=== PATIENT | female | born 1945 | race Caucasian/White ===

== ENCOUNTER 2016-08-13 15:12 | Emergency (ER) | payer MEDICARE, OTHER ==
[2016-08-13] MEDS ORDERED: BUPIVACAINE 0.5%-EPI 1:200000 PF 30 ML VIAL ONE (16:09)
[2016-08-13] MEDS ORDERED: BUPIVACAINE 0.5% PF 30 ML VIAL SUBQ STA (16:14)
[2016-08-13] MEDS ORDERED: PENICILLIN VK 250 MG TABLET PO STA (16:14)
--- NOTE | 2016-08-13 16:18 | ED Physician Documentation ---
PD HPI HEENT - Stated complaint Stated Complaint: TOOTH PX - Chief complaint Chief Complaint: Heent - History obtained from History obtained from: Patient, Family - History of Present Illness Timing - onset: How many days ago (several) Timing - duration: Days Timing - details: Gradual onset Pain level max: 10 Pain level now: 10 Location: Tooth (lower left molar) Improves: Nothing Worsens: Swalllowing, Temperatures, Everything Associated symptoms: No: Fever, Congestion, Rhinorrhea, Trismus, Unable to swallow, Facial swelling Similar symptoms before: Diagnosis (dental abscess) - Additional information Additional information: Is a 70-year-old female who was seen by her dentist this week for her cracked tooth with dental abscess reportedly. They attempted to repair the tooth. Since that time she has had increasing pain in the left lower jaw. No swelling to the face. She had an old oxycodone left over and took that today without relief. No fevers. No vomiting. Review of Systems Constitutional: denies: Fever, Chills Ears: denies: Ear pain Nose: denies: Rhinorrhea / runny nose, Congestion Throat: denies: Sore throat Cardiac: denies: Chest pain / pressure Respiratory: denies: Cough GI: denies: Nausea, Vomiting, Diarrhea Skin: denies: Rash PD PAST MEDICAL HISTORY - Past Medical History Past Medical History: Yes Cardiovascular: Hypertension Respiratory: Asthma Neuro: None Endocrine/Autoimmune: None GI:  : Incontinence HEENT: None Psych: Depression Musculoskeletal: Osteoarthritis - Past Surgical History Past Surgical History: Yes General: Appendectomy, Gastric surgery 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 - Present Medications Home Medications: Ambulatory Orders Medication Instructions Recorded Confirmed Fexofenadine HCl [Marysol Allergy] 60 mg PO BID 07/05/13 07/05/13 Hydrochlorothiazide 12.5 mg PO DAILY PRN 07/05/13 07/05/13 Lisinopril [Prinivil] 20 mg PO DAILY 07/05/13 07/05/13 buPROPion [Wellbutrin Xl] 150 mg PO BID 07/05/13 07/05/13 Cholecalciferol [Vitamin D3] 1 DAILY 10/29/15 Cyanocobalamin (Vitamin B-12) 5,000 DAILY 10/29/15 [Vitamin B-12 (1000 mcg sublingual)] Oxybutynin [Ditropan] 15 mg PO DAILY 10/29/15 Oxycodone HCl/Acetaminophen 1 - 2 each PO Q6H PRN #14 tablet 08/13/16 [Percocet 5-325 mg Tablet] Penicillin V Potassium 500 mg PO Q6HR #40 tablet 08/13/16 - Allergies Allergies/Adverse Reactions: Allergies Allergy/AdvReac Type Severity Reaction Status Date / Time latex Allergy Rash Verified 10/29/15 06:55 sulfamethoxazole AdvReac Rash Verified 07/05/13 14:18 [From ] trimethoprim [From ] AdvReac Rash Verified 07/05/13 14:18 tape Allergy Rash Uncoded 10/28/15 13:07 - Social History Does the pt smoke?: No Smoking Status: Never smoker Does the pt drink ETOH?: No Does the pt have substance abuse?: No - Immunizations Immunizations are current?: Yes - POLST Patient has POLST: No PD ED PE NORMAL - Vitals Vital signs reviewed: Yes - General General: Alert and oriented X 3, No acute distress - HEENT HEENT: Moist mucous membranes - Neck Neck: Supple, no meningeal sign, No adenopathy, Other (No Skyler's angina) - Cardiac Cardiac: RRR - Derm Derm: Warm and dry - Neuro Neuro: Alert and oriented X 3 - Psych Psych: Normal mood, Normal affect PD ED PE EXPANDED - HEENT HEENT Visual: 1 - tenderness (No gingival swelling. No drainable abscess.) Results - Vitals Vitals: Vital Signs - 24 hr 08/13/16 08/13/16 15:15 16:38 Temperature 36.7 C 36.0 C L Heart Rate 78 65 Respiratory 18 20 Rate Blood Pressure 229/107 H 203/88 H O2 Saturation 96 99 Oxygen O2 Source Room air PD MEDICAL DECISION MAKING - ED course Complexity details: re-evaluated patient, considered differential, d/w patient, d/w family ED course: Patient is a 70-year-old female with left lower molar dental pain. No drainable abscess. A dental block was performed with 0.5% Marcaine with epinephrine with excellent relief of pain. Will prescribe a small amount of pain medication and antibiotics for home. We will have her call her dentist for close follow-up. She is afebrile. Tolerating p.o. without difficulty. Patient and family counseled regarding signs and symptoms for which I believe and urgent re-evaluation would be necessary. Patient with good understanding of and agreement to plan and is comfortable going home at this time This document was made in part using voice recognition software. While efforts are made to proofread this document, sound alike and grammatical errors may occur. Normal phonation. No trismus. No Ludwigs angina Departure - Departure Disposition: Home, Self Care Clinical Impression: Pain due to dental caries Condition: Good Instructions: ED Tooth Pain Follow-Up: Fredi Brizuela MD [Primary Care Provider] - your,dentist on Monday [Other] Prescriptions: Penicillin V Potassium 500 mg PO Q6HR #40 tablet Oxycodone HCl/Acetaminophen [Percocet 5-325 mg Tablet] 1 - 2 each PO Q6H PRN # 14 tablet PRN Reason: pain Comments: Return if you worsen. Make sure to take all the antibiotics at home. Do not drink alcohol or drive while on narcotic pain medicine. Note that many narcotic pain relievers also contain tylenol/acetaminophen. Please ensure that your total dose of acetaminophen from all sources does not exceed 3 grams (3000mg) per day. You may constipated on this medication, take a stool softener such as "Colace" twice a day while you are on it. Also recommend a fvcy-tla-bwvyrcl laxative such as senna or MiraLAX any day that you do not have a bowel movement. If you received narcotic pain medication in the emergency department, do not drive or operate machinery for the next 24 hours. Discharge Date/Time: 08/13/16 16:40
[2016-08-13] MEDS ORDERED: PENICILLIN VK 250 MG TABLET PO ONE (16:21)
[2016-08-13 16:40] VITALS: BP 203/88
== END 2016-08-13 16:40 | disposition home or self-care (01) ==
LOC: ED 15:12
DX: K02.9 Dental caries, unspecified (principal); I10 Essential (primary) hypertension
CPT/HCPCS: 64400; 99283; A9270

== ENCOUNTER 2016-12-05 08:00 | Outpatient (CLI) | payer MEDICARE, OTHER ==
[2016-12-05 13:54] LABS: BASOPHILS # (AUTO) 0.1 10^3/uL (0.0-0.1); BASOPHILS % (AUTO) 0.6 %; EOSINOPHILS # (AUTO) 0.2 10^3/uL (0.0-0.7); EOSINOPHILS % (AUTO) 2.4 %; HCT - HEMATOCRIT 40.6 % (37.0-47.0); HGB - HEMOGLOBIN 13.6 g/dL (12.0-16.0); LYMPHOCYTES # (AUTO) 2.2 10^3/uL (1.5-3.5); LYMPHOCYTES % (AUTO) 24.7 %; MEAN CORPUSCULAR HEMOGLOBIN 29.4 pg (27.0-31.0); MEAN CORPUSCULAR HGB CONC 33.5 g/dL (32.0-36.0); MEAN CORPUSCULAR VOLUME 87.6 fL (81.0-99.0); MEAN PLATELET VOLUME 9.9 fL (7.9-10.8); MONOCYTES # (AUTO) 0.7 10^3/uL (0.0-1.0); MONOCYTES % (AUTO) 8.2 %; NEUTROPHILS # (AUTO) 5.8 10^3/uL (1.5-6.6); NEUTROPHILS % (AUTO) 64.1 %; RED BLOOD COUNT 4.63 10^6/uL (4.20-5.40); RED CELL DISTRIBUTION WIDTH 12.9 % (12.0-15.0); UNCORRECTED WHITE BLOOD COUNT 9.1 x10^3/uL; WHITE BLOOD COUNT 9.1 x10^3/uL (4.8-10.8)
[2016-12-05 14:28] LABS: ALBUMIN/GLOBULIN RATIO 1.3 (1.0-2.2); BILIRUBIN,TOTAL 0.4 mg/dL (0.2-1.0); BUN - BLOOD UREA NITROGEN 17 mg/dL (6-20); CALCIUM 9.3 mg/dL (8.5-10.3); CARBON DIOXIDE - CO2 27 mmol/L (21-32); CHLORIDE 102 mmol/L (101-111); CHOL/HDL RATIO 2.7 (<4.4); CHOLESTEROL 192 mg/dL; CREATININE 0.9 mg/dL (0.4-1.0); GFR - MDRD 61 (>89); GLUCOSE 106 mg/dL (70-100); HDL CHOLESTEROL 71 mg/dL; LDL/HDL RATIO 1.3 (<4.4); POTASSIUM 3.8 mmol/L (3.5-5.0); SODIUM 137 mmol/L (135-145); TOTAL PROTEIN 7.3 g/dL (6.7-8.2); TRIGLYCERIDES 135 mg/dL; VLDL CHOLESTEROL 27 mg/dL
[2016-12-05 14:30] LABS: THYROID STIMULATING HORMONE 2.3 uIU/mL (0.34-5.60)
[2016-12-05 14:46] LABS: HEMOGLOBIN A1C 0.55 g/dL
== END 2016-12-05 08:01 | disposition home or self-care (01) ==
LOC: LAB.N 08:00
PROVIDERS: ATTEND Internal Medicine
DX: Z79.899 Other long term (current) drug therapy (principal); Z98.84 Bariatric surgery status; E11.9 Type 2 diabetes mellitus without complications; E66.9 Obesity, unspecified; F32.9 Major depressive disorder, single episode, unspecified; E78.2 Mixed hyperlipidemia; I10 Essential (primary) hypertension
CPT/HCPCS: 36415; 80053; 80061; 82306; 82607; 83036; 84443; 85025

== ENCOUNTER 2017-01-11 08:53 | Outpatient (CLI) | payer MEDICARE, OTHER | END 2017-01-11 08:54 | disposition home or self-care (01) | LOC: LAB.R 08:53 | PROVIDERS: ATTEND Physician Assistant Medical | DX: R31.9 Hematuria, unspecified (principal) | CPT/HCPCS: 87086 ==

== ENCOUNTER 2017-01-11 09:08 | Outpatient (CLI) | payer MEDICARE, OTHER ==
--- NOTE | 2017-01-11 13:13 | XRAY Report ---
RIGHT HIP AND PELVIS: 01/11/2017 CLINICAL INDICATION: Pain. FINDINGS: Frontal view of the hips and pelvis and frogleg lateral view of the right hip demonstrate mild right hip osteoarthritis. There is no evidence of acute fracture or dislocation. No foreign body is seen in the soft tissues. IMPRESSION: MILD RIGHT HIP OSTEOARTHRITIS. JOB #: [id number] EXT JOB #:[id number]
--- NOTE | 2017-01-11 13:16 | XRAY Report ---
TWO VIEW LEFT SHOULDER: 01/11/2017 CLINICAL INDICATION: Pain. FINDINGS: Frontal and scapular Y views of the left shoulder demonstrate severe glenohumeral osteoart hritis, with bulky osteophytes. There is no evidence of acute fracture or dislocation. No radiopaque foreign body is seen in the soft tissues. IMPRESSION: SEVERE GLENOHUMERAL OSTEOARTHRITIS. JOB #: [id number] EXT JOB #:[id number]
== END 2017-01-11 09:09 | disposition home or self-care (01) ==
LOC: DI 09:08
PROVIDERS: ATTEND Physician Assistant Medical
DX: M16.11 Unilateral primary osteoarthritis, right hip (principal); M19.012 Primary osteoarthritis, left shoulder; R31.9 Hematuria, unspecified
CPT/HCPCS: 87086

== ENCOUNTER 2017-01-20 07:30 | Outpatient (CLI) | payer MEDICARE, OTHER ==
--- NOTE | 2017-01-20 10:48 | Ultrasound Report ---
RIGHT UPPER QUADRANT ULTRASOUND: 01/20/2017 CLINICAL INDICATION: Abdominal pain. TECHNIQUE: Real-time scanning was performed with sales representative static images obtained. FINDINGS: The liver measures 15.4 cm. Hepatic echogenicity is normal. No intrahepatic biliary dilata tion or focal parenchymal lesion is present. The common bile duct measures 2 mm. The gallbladder is n ormal. The right kidney measures 9.5 cm, and demonstrates no hydronephrosis. No free fluid is present . IMPRESSION: NORMAL RIGHT UPPER QUADRANT ULTRASOUND. JOB #: [id number] EXT JOB #:[id number]
--- NOTE | 2017-01-20 16:59 | DEXA Report ---
DEXA SCAN: 01/20/2017 CLINICAL INDICATION: Postmenopausal. TECHNIQUE: Dual energy x-ray absorptiometry (DXA) was performed on a eToro system. Regions measured are the AP spine, femoral neck, and, if needed, forearm. COMPARISON: None. In accordance with the International Society for Clinical Densitometry (ISCD) guidelines, data from previous exams may be reanalyzed using current recommendations and techniques. This is done to allow a more accurate basis for comparison with the current study. FINDINGS LUMBAR SPINE DATA: REGION BMD (g/cm/cm) T-SCORE Z-SCORE L1 1.053 -0.6 0.4 L2 1.299 0.8 1.9 L3 1.513 2.6 3.7 L4 1.485 2.4 3.4 TOTAL 1.343 1.4 2.4 NOTE: All evaluable vertebrae are used for classification. HIP DATA: REGION BMD (g/cm/cm) T-SCORE Z-SCORE Neck 0.701 -2.4 -1.0 TOTAL 0.746 -2.1 -0.9 NOTE: The femoral neck or total proximal femur, whichever is lowest, is used for classification. IMPRESSION THE WHO CLASSIFICATION BASED ON THE INTERNATIONAL REFERENCE STANDARD: OSTEOPENIA. FRACTURE RISK: INCREASED. RECOMMENDATION: Patients with diagnosis of osteoporosis or osteopenia should have regular bone mineral density assessment. For those eligible for Medicare, routine testing is allowed once every 2 years. Testing frequency can be increased for patients who have rapidly progressing disease or for those who are receiving medical therapy to restore bone mass. COMMENT: World Health Organization (WHO) definitions for osteoporosis and osteopenia: NORMAL BMD: T-score at -1.0 or higher, fracture risk is low. OSTEOPENIA BMD: T-score between -1.0 and -2.5, fracture risk is increased. OSTEOPOROSIS BMD: T-score at -2.5 or lower, fracture risk high. National Osteoporosis Foundation recommends: 1. Obtain adequate dietary calcium (at least 1200 mg per day) and vitamin D (400 -800 international units per day). 2. Participate, as appropriate, in regular weightbearing and muscle- strengthening exercise. 3. Avoid tobacco use and reduce alcohol and caffeine intake. 4. For more detailed information see the website at www.NOF.org. MTDD
== END 2017-01-20 07:31 | disposition home or self-care (01) ==
LOC: DI 07:30
PROVIDERS: ATTEND Physician Assistant Medical
DX: M85.88 Other specified disorders of bone density and structure, other site (principal); R10.11 Right upper quadrant pain
CPT/HCPCS: 76705; 77080

== ENCOUNTER 2017-01-26 09:06 | Outpatient (CLI) | payer MEDICARE, OTHER ==
--- NOTE | 2017-01-31 16:39 | Mammography Report ---
DIGITAL BILATERAL SCREENING MAMMOGRAM: 01/26/2017 COMPARISON EXAM: Mammogram 09/09/2014. TECHNIQUE: Routine CC and MLO projections were obtained of the breasts. BREAST DENSITY: There are scattered fibroglandular densities. FINDINGS: No dominant mass, architectural distortion, or concerning cluster of microcalcifications is seen. IMPRESSION: NEGATIVE BIRADS CATEGORY: 1, NEGATIVE. RECOMMENDATION: ANNUAL SCREENING MAMMOGRAM STANDARD QUALIFYING STATEMENTS 1. This examination was reviewed with the aid of Computed-Aided Detection (CAD). 2. A negative or benign imaging report should not delay biopsy if clinically suspicious findings are present. Consider surgical consultation if warranted. More than 5% of cancers are not identified by imaging. 3. Dense breasts may obscure an underlying neoplasm. MTDD
== END 2017-01-26 09:07 | disposition home or self-care (01) ==
LOC: DI.N 09:06
PROVIDERS: ATTEND Physician Assistant Medical
DX: Z12.31 Encounter for screening mammogram for malignant neoplasm of breast (principal)
CPT/HCPCS: 77067

== ENCOUNTER 2017-07-11 08:00 | Outpatient (CLI) | payer MEDICARE, OTHER ==
[2017-07-11 15:20] LABS: BILIRUBIN,URINE NEGATIVE (NEGATIVE); GLUCOSE, URINE (UA) NEGATIVE (NEGATIVE); KETONES,URINE (UA) NEGATIVE (NEGATIVE); LEUKOCYTE ESTERASE, URINE NEGATIVE (NEGATIVE); NITRITE,URINE NEGATIVE (NEGATIVE); OCCULT BLOOD,URINE NEGATIVE (NEGATIVE); PH,URINE 6.5 PH (5.0-7.5); PROTEIN,URINE NEGATIVE (NEGATIVE); UROBILINOGEN,URINE 0.2 (NORMAL) E.U./dL (NORMAL)
[2017-07-11 15:20] LABS: BASOPHILS # (AUTO) 0.1 10^3/uL (0.0-0.1); BASOPHILS % (AUTO) 0.8 %; EOSINOPHILS # (AUTO) 0.1 10^3/uL (0.0-0.7); EOSINOPHILS % (AUTO) 1.6 %; HGB - HEMOGLOBIN 13.6 g/dL (12.0-16.0); LYMPHOCYTES # (AUTO) 2.5 10^3/uL (1.5-3.5); LYMPHOCYTES % (AUTO) 34.5 %; MEAN CORPUSCULAR HEMOGLOBIN 28.5 pg (27.0-31.0); MEAN CORPUSCULAR VOLUME 86.5 fL (81.0-99.0); MONOCYTES # (AUTO) 0.6 10^3/uL (0.0-1.0); MONOCYTES % (AUTO) 7.5 %; NEUTROPHILS # (AUTO) 4.1 10^3/uL (1.5-6.6); NEUTROPHILS % (AUTO) 55.6 %; PLT - PLATELET COUNT 242 10^3/uL (130-450); RED BLOOD COUNT 4.77 10^6/uL (4.20-5.40); RED CELL DISTRIBUTION WIDTH 12.9 % (12.0-15.0); WHITE BLOOD COUNT 7.3 x10^3/uL (4.8-10.8)
[2017-07-11 15:21] LABS: CLARITY,URINE CLEAR (CLEAR)
[2017-07-11 15:45] LABS: ALBUMIN 3.8 g/dL (3.2-5.5); ALBUMIN/GLOBULIN RATIO 1.1 (1.0-2.2); ALKALINE PHOSPHATASE 150 IU/L (42-121); ALT ALANINE AMINOTRANSFERASE 56 IU/L (10-60); AST ASPARTATE AMINOTRANSFERASE 33 IU/L (10-42); BILIRUBIN,TOTAL 0.4 mg/dL (0.2-1.0); BUN - BLOOD UREA NITROGEN 17 mg/dL (6-20); CALCIUM 9.5 mg/dL (8.5-10.3); CARBON DIOXIDE - CO2 28 mmol/L (21-32); CHLORIDE 102 mmol/L (101-111); CREATININE 0.7 mg/dL (0.4-1.0); GFR - MDRD 82 (>89); GLUCOSE 84 mg/dL (70-100); SODIUM 137 mmol/L (135-145); TOTAL PROTEIN 7.4 g/dL (6.7-8.2)
[2017-07-11 16:15] LABS: CRP - C-REACTIVE PROTEIN < 1.0 mg/dL (0-1.0)
== END 2017-07-11 08:01 | disposition home or self-care (01) ==
LOC: LAB.R 08:00
PROVIDERS: ATTEND Physician Assistant Medical
DX: R31.9 Hematuria, unspecified (principal); R53.83 Other fatigue; R10.11 Right upper quadrant pain; Z79.899 Other long term (current) drug therapy; R74.8 Abnormal levels of other serum enzymes
CPT/HCPCS: 80053; 81001; 81003; 82977; 84443; 85025; 85651; 86140; 87086

== ENCOUNTER 2017-08-30 16:59 | Outpatient (CLI) | payer MEDICARE, OTHER ==
--- NOTE | 2017-08-31 09:50 | Ultrasound Report ---
Procedure Date: 08/30/2017 Accession Number: [id number] / [id number] Procedure: US - Carotid Doppler Complete CPT Code: FULL RESULT: EXAM: BILATERAL CAROTID AND VERTEBRAL ARTERY DUPLEX DOPPLER ULTRASOUND: EXAM DATE: 08/30/2017 05:40 PM CLINICAL HISTORY: Dizziness. COMPARISON: None. TECHNIQUE: Grayscale imaging, color Doppler, and duplex spectral Doppler were used to evaluate the carotid and vertebral arteries bilaterally. Static images were obtained. FINDINGS: The right CCA has intimal hyperplasia. There is noncalcified plaque distally. There is calcified plaque at the bulb. There is calcified plaque in the proximal right ICA. ICA is very ectatic. Left common carotid artery has intimal hyperplasia with calcified and noncalcified plaque mid to distal. Calcified plaque at the bulb extending into the left ICA. ICA is ectatic. Normal antegrade flow is present in bilateral vertebral arteries. VELOCITIES (cm/sec): RIGHT: RCCA Prox: PSV 35.2 cm/sec. RCCA Dist: PSV 46.7 cm/sec, EDV 9.9 cm/sec. RECA: PSV 48.5 cm/sec. R Bulb: PSV 39.9 cm/sec, EDV 5.7 cm/sec, ICA/CCA ratio 0.9. NATALY Prox: PSV 43 cm/sec, EDV 11.7 cm/sec, ICA/CCA ratio 0.9. NATALY Mid: PSV 45.7 cm/sec, EDV 10.5 cm/sec, ICA/CCA ratio 1.0. NATALY Dist: PSV 39.6 cm/sec, EDV 9.3 cm/sec, ICA/CCA ratio 0.8. RVA: PSV 49.6 cm/sec. RVA flow direction: Antegrade. LEFT: LCCA Prox: PSV 51.4 cm/sec. LCCA Dist: PSV 52.1 cm/sec, EDV 13.5 cm/sec. LECA: PSV 41.7 cm/sec. L Bulb: PSV 46.4 cm/sec, EDV 8.5 cm/sec, ICA/CCA ratio 0.9. LICA Prox: PSV 52.1 cm/sec, EDV 12.9 cm/sec, ICA/CCA ratio 1.0. LICA Mid: PSV 72.3 cm/sec, EDV 19.6 cm/sec, ICA/CCA ratio 1.4. LICA Dist: PSV 66.5 cm/sec, EDV 16.1 cm/sec, ICA/CCA ratio 1.3. LVA: PSV 67.3 cm/sec. LVA flow direction: Antegrade. ICA diameter stenosis: Right: <50% by velocity and <70% by NASCET criteria. Left: <50% by velocity and <70% by NASCET criteria. IMPRESSION: 1. Bilateral carotid artery plaquing without significant stenosis. 2. In the right carotid artery there are no elevated carotid artery velocities to suggest hemodynamically significant stenosis. 3. In the left carotid artery there are no elevated carotid artery velocities to suggest hemodynamically significant stenosis. 4. Normal antegrade flow is present in bilateral vertebral arteries. General Recommendations: Stenosis =50% ICA - Follow-up ultrasound 6-12 months Stenosis <50% ICA - High Risk Patient with plaque - Follow-up ultrasound 1-2 years Normal Study but High Risk Patient - Follow-up ultrasound 3-5 years Management recommendations and diagnostic criteria are based on current IAC endorsed standards in Carotid Artery Stenosis: Grayscale and Doppler Ultrasound Diagnosis. Validated velocity measurements with angiographic measurements and velocity criteria are extrapolated from diameter data as defined by the Society of Radiologists in Ultrasound Consensus Conference Radiology 2003; 229;340-346. RADIA
== END 2017-08-30 17:00 | disposition home or self-care (01) ==
LOC: DI 16:59
PROVIDERS: ATTEND Physician Assistant Medical
DX: R42 Dizziness and giddiness (principal)
CPT/HCPCS: 93880

== ENCOUNTER 2017-11-14 16:28 | Outpatient (CLI) | payer MEDICARE, OTHER ==
[2017-11-14 16:56] LABS: BASOPHILS % (AUTO) 0.8 %; EOSINOPHILS % (AUTO) 1.8 %; HGB - HEMOGLOBIN 13.8 g/dL (12.0-16.0); LYMPHOCYTES % (AUTO) 31.6 %; MEAN CORPUSCULAR HEMOGLOBIN 29.9 pg (27.0-31.0); MEAN CORPUSCULAR VOLUME 85.5 fL (81.0-99.0); MEAN PLATELET VOLUME 7.8 fL (7.9-10.8); NEUTROPHILS % (AUTO) 58.8 %; PLT - PLATELET COUNT 427 10^3/uL (130-450); RED BLOOD COUNT 4.61 10^6/uL (4.20-5.40); RED CELL DISTRIBUTION WIDTH 13.6 % (12.0-15.0); WHITE BLOOD COUNT 10.2 x10^3/uL (4.8-10.8)
[2017-11-14 17:04] LABS: ABNORMAL LYMPHS % (MANUAL) 0 %; BAND NEUTROPHILS % (MANUAL) 0 %
[2017-11-14 17:07] LABS: ALBUMIN 3.8 g/dL (3.2-5.5); ALBUMIN/GLOBULIN RATIO 0.9 (1.0-2.2); BILIRUBIN,TOTAL 0.2 mg/dL (0.2-1.0); CALCIUM 9.4 mg/dL (8.5-10.3); CREATININE 0.8 mg/dL (0.4-1.0)
[2017-11-14 17:08] LABS: BILIRUBIN,URINE NEGATIVE (NEGATIVE); GLUCOSE, URINE (UA) NEGATIVE (NEGATIVE); KETONES,URINE (UA) NEGATIVE (NEGATIVE); LEUKOCYTE ESTERASE, URINE NEGATIVE (NEGATIVE); NITRITE,URINE NEGATIVE (NEGATIVE); OCCULT BLOOD,URINE NEGATIVE (NEGATIVE); PH,URINE 7.5 PH (5.0-7.5); PROTEIN,URINE NEGATIVE (NEGATIVE); UROBILINOGEN,URINE 0.2 (NORMAL) E.U./dL (NORMAL)
[2017-11-14 17:11] LABS: CLARITY,URINE CLEAR (CLEAR)
[2017-11-14 17:22] LABS: BASOPHILS # (MANUAL) 0.2 10^3/uL (0-0.1); BASOPHILS % (MANUAL) 2 %; EOSINOPHILS # (MANUAL) 0.2 10^3/uL (0-0.7); LYMPHOCYTES # (MANUAL) 4.8 10^3/uL (1.5-3.5); LYMPHOCYTES % (MANUAL) 38 %; METAMYELOCYTES % (MANUAL) 2 %; MONOCYTES # (MANUAL) 0.4 10^3/uL (0.0-1.0); NEUTROPHILS # (MANUAL) 4.4 10^3/uL (1.5-6.6); NEUTROPHILS % (MANUAL) 43 %; PLATELET MORPHOLOGY NORMAL APPEARANCE (NORMAL); RBC MORPHOLOGY (MULTIPLE) NORMAL APPEARANCE (NORMAL)
[2017-11-14 17:23] LABS: DIFFERENTIAL COMMENT MANUAL DIFFERENTIAL; PLATELET ESTIMATE, MANUAL NORMAL (130-450,000) (NORMAL)
== END 2017-11-14 16:29 | disposition home or self-care (01) ==
LOC: LAB 16:28
PROVIDERS: ATTEND Internal Medicine
DX: N12 Tubulo-interstitial nephritis, not specified as acute or chronic (principal)
CPT/HCPCS: 36415; 80053; 81001; 81003; 85025; 87086

== ENCOUNTER 2017-11-20 08:00 | Outpatient (CLI) | payer MEDICARE, OTHER ==
[2017-11-20 19:21] LABS: ALBUMIN 3.9 g/dL (3.2-5.5); BILIRUBIN,TOTAL 0.6 mg/dL (0.2-1.0); CALCIUM 9.6 mg/dL (8.5-10.3); CREATININE 0.8 mg/dL (0.4-1.0); TOTAL PROTEIN 7.7 g/dL (6.7-8.2)
[2017-11-21 13:27] LABS: HEPATITIS A IGM NON-REACTIVE (NON-REACTIVE); HEPATITIS B CORE ANTIBODY IGM NON-REACTIVE (NON-REACTIVE); HEPATITIS B SURFACE ANTIGEN NON-REACTIVE (NON-REACTIVE); HEPATITIS C ANTIBODY NON-REACTIVE (NON-REACTIVE)
== END 2017-11-20 08:01 | disposition home or self-care (01) ==
LOC: LAB.N 08:00
PROVIDERS: ATTEND Internal Medicine
DX: R94.5 Abnormal results of liver function studies (principal); R30.0 Dysuria
CPT/HCPCS: 36415; 80053; 80074; 87086

== ENCOUNTER 2017-11-30 11:32 | Outpatient (CLI) | payer MEDICARE, OTHER ==
[2017-11-30 15:27] LABS: BASOPHILS % (AUTO) 0.5 %; EOSINOPHILS # (AUTO) 0.1 10^3/uL (0.0-0.7); EOSINOPHILS % (AUTO) 1.9 %; HGB - HEMOGLOBIN 13.4 g/dL (12.0-16.0); LYMPHOCYTES # (AUTO) 2.3 10^3/uL (1.5-3.5); LYMPHOCYTES % (AUTO) 34.9 %; MEAN CORPUSCULAR HEMOGLOBIN 29.4 pg (27.0-31.0); MEAN CORPUSCULAR HGB CONC 34.1 g/dL (32.0-36.0); MEAN CORPUSCULAR VOLUME 86.2 fL (81.0-99.0); MEAN PLATELET VOLUME 10.2 fL (7.9-10.8); MONOCYTES # (AUTO) 0.5 10^3/uL (0.0-1.0); MONOCYTES % (AUTO) 7.7 %; NEUTROPHILS # (AUTO) 3.6 10^3/uL (1.5-6.6); PLT - PLATELET COUNT 243 10^3/uL (130-450); RED BLOOD COUNT 4.58 10^6/uL (4.20-5.40); RED CELL DISTRIBUTION WIDTH 13.8 % (12.0-15.0); WHITE BLOOD COUNT 6.6 x10^3/uL (4.8-10.8)
[2017-11-30 15:42] LABS: CHOL/HDL RATIO 2.9 (<4.4); CHOLESTEROL 220 mg/dL; HDL CHOLESTEROL 76 mg/dL; LDL CHOLESTEROL,CALCULATED 113 mg/dL; LDL/HDL RATIO 1.5 (<4.4); VLDL CHOLESTEROL 31 mg/dL
[2017-11-30 16:11] LABS: HB2 TOTAL 14.2 g/dL; HEMOGLOBIN A1C 0.63 g/dL; HEMOGLOBIN A1C % 6.2 % (4.6-6.2)
== END 2017-11-30 11:33 | disposition home or self-care (01) ==
LOC: LAB.R 11:32
PROVIDERS: ATTEND Physician Assistant Medical
DX: Z79.899 Other long term (current) drug therapy (principal); F32.9 Major depressive disorder, single episode, unspecified; E78.2 Mixed hyperlipidemia; E11.9 Type 2 diabetes mellitus without complications
CPT/HCPCS: 80061; 83036; 83721; 84443; 85025

== ENCOUNTER 2018-08-02 15:08 | Outpatient (CLI) | payer MEDICARE, OTHER | END 2018-08-02 15:09 | disposition home or self-care (01) | LOC: LAB 15:08 | PROVIDERS: ATTEND Internal Medicine Cardiovascular Disease | DX: I25.10 Atherosclerotic heart disease of native coronary artery without angina pectoris (principal) ==

== ENCOUNTER 2021-08-09 08:38 | Outpatient (CLI) | payer MEDICARE, OTHER ==
--- NOTE | 2021-08-09 15:21 | Ultrasound Report ---
PROCEDURE: Abdomen Limited INDICATIONS: RUQ PAIN S/P CHOLECYSTECTOMY TECHNIQUE: Real-time focused scanning was performed of the abdomen, with image documentation. COMPARISON: Abdominal ultrasound 02/05/2017 FINDINGS: Cholecystectomy. No intrahepatic or extra hepatic biliary ductal dilatation. Diffusely inc reased hepatic parenchymal echogenicity indicative of mild hepatic steatosis. Otherwise normal liver without evidence of mass. Visualized portions of the pancreas are normal. Right kidney unremarkable. IMPRESSION: Cholecystectomy. Mild hepatic steatosis. Reviewed by: Philipp Bellamy MD on 08/09/2021 3:20 PM PDT Approved by: Philipp Bellamy MD on 08/09/2021 3:20 PM PDT Station ID: [id number]
== END 2021-08-09 08:39 | disposition home or self-care (01) ==
LOC: DI 08:38
PROVIDERS: ATTEND Student in an Organized Health Care Education/Training Program
DX: R10.11 Right upper quadrant pain (principal); Z90.49 Acquired absence of other specified parts of digestive tract; K76.0 Fatty (change of) liver, not elsewhere classified

== ENCOUNTER 2022-02-18 13:10 | Outpatient (CLI) | payer MEDICARE, OTHER ==
--- NOTE | 2022-02-18 16:29 | XRAY Report ---
PROCEDURE: Chest 2 View X-Ray INDICATIONS: COUGH,POSS PNA TECHNIQUE: 2 views of the chest were acquired. COMPARISON: None. FINDINGS: Surgical changes and devices: A right shoulder arthroplasty is present.. Lungs and pleura: No pleural effusions or pneumothorax. Mild patchy opacities in the left upper lung zone are suspicious for pneumonia. Mediastinum: Mediastinal contours are normal. Heart size is normal. Bones and chest wall: No suspicious bony abnormalities. Soft tissues appear unremarkable. IMPRESSION: Mild patchy opacities in the left upper lung zone are suspicious for pneumonia. Reviewed by: Abran Ladd MD on 02/18/2022 4:28 PM PST Approved by: Abran Ladd MD on 02/18/2022 4:28 PM PST Station ID: [id number]
== END 2022-02-18 13:11 | disposition home or self-care (01) ==
LOC: DI 13:10
PROVIDERS: ATTEND Student in an Organized Health Care Education/Training Program
DX: R91.8 Other nonspecific abnormal finding of lung field (principal)

== ENCOUNTER 2022-10-28 12:43 | Outpatient (CLI) | payer MEDICARE, OTHER ==
--- NOTE | 2022-10-28 19:31 | Ultrasound Report ---
PROCEDURE: Carotid Doppler Complete INDICATIONS: ISCHEMIC STROKE TECHNIQUE: Duplex carotid ultrasound was obtained and sales representative aircraft images were recorded with veloc ity measurements. Any estimate of stenosis was obtained with reference to standards endorsed by the Intersocietal Accreditation Commission COMPARISON: None. FINDINGS: Right side: Brachial blood pressure: 151/59 mm Hg. Common carotid artery peak systolic velocity: 65 cm/sec. Internal carotid artery peak systolic velocity: 72 cm/sec. Internal carotid artery end diastolic velocity: 19 cm/sec. External carotid artery peak systolic velocity: 61 cm/sec. ICA/CCA peak systolic ratio: 1.1 . Rivera scale imaging description: Moderate atherosclerotic plaque. Percent internal carotid artery stenosis: Less than 50. Vertebral artery: Flow direction is antegrade. Left side: Brachial blood pressure: 153/55 mm Hg. Common carotid artery peak systolic velocity: 60 cm/sec. Internal carotid artery peak systolic velocity: 82 cm/sec. Internal carotid artery end diastolic velocity: 21 cm/sec. External carotid artery peak systolic velocity: 93 cm/sec. ICA/CCA peak systolic ratio: 1.3 . Rivera scale imaging description: Atherosclerotic plaque Percent internal carotid artery stenosis: Less than 50. Vertebral artery: Flow direction is antegrade. IMPRESSION: 1. Less than 50% stenosis, bilateral proximal ICA Reviewed by: Harshal Salinas MD on 10/28/2022 6:30 PM AKDT Approved by: Harshal Salinas MD on 10/28/2022 6:30 PM AKDT Station ID: [id number]
== END 2022-10-28 12:44 | disposition home or self-care (01) ==
LOC: DI 12:43
PROVIDERS: ATTEND Psychiatry & Neurology Neurology
DX: I63.9 Cerebral infarction, unspecified (principal); I65.23 Occlusion and stenosis of bilateral carotid arteries
CPT/HCPCS: 93880

== ENCOUNTER 2023-01-03 12:47 | Outpatient (CLI) | payer MEDICARE, OTHER | END 2023-01-03 12:48 | disposition home or self-care (01) | LOC: DI 12:47 | PROVIDERS: ATTEND Psychiatry & Neurology Neurology | DX: I63.9 Cerebral infarction, unspecified (principal); R00.1 Bradycardia, unspecified; I51.7 Cardiomegaly | CPT/HCPCS: 93306 ==

== ENCOUNTER 2023-02-17 11:14 | Emergency (ER) | payer MEDICARE, OTHER ==
[2023-02-17 11:52] LABS: BASOPHILS % (AUTO) 0.4 %; EOSINOPHILS # (AUTO) 0.2 10^3/uL (0.0-0.7); EOSINOPHILS % (AUTO) 2.3 %; HCT - HEMATOCRIT 37.8 % (37.0-47.0); HGB - HEMOGLOBIN 12.2 g/dL (12.0-16.0); LYMPHOCYTES # (AUTO) 1.5 10^3/uL (1.5-3.5); MEAN CORPUSCULAR HEMOGLOBIN 26.6 pg (27.0-31.0); MEAN CORPUSCULAR HGB CONC 32.3 g/dL (32.0-36.0); MEAN CORPUSCULAR VOLUME 82.4 fL (81.0-99.0); MEAN PLATELET VOLUME 11.1 fL (7.9-10.8); MONOCYTES % (AUTO) 12.1 %; NEUTROPHILS # (AUTO) 5.2 10^3/uL (1.5-6.6); NEUTROPHILS % (AUTO) 65.8 %; PLT - PLATELET COUNT 222 10^3/uL (130-450); RED BLOOD COUNT 4.59 10^6/uL (4.20-5.40); RED CELL DISTRIBUTION WIDTH 13.5 % (12.0-15.0); WHITE BLOOD COUNT 7.9 x10^3/uL (4.8-10.8)
[2023-02-17 12:01] LABS: ACETAMINOPHEN 0.7 ug/mL; ALBUMIN 4.1 g/dL (3.2-5.5); ALBUMIN/GLOBULIN RATIO 1.4 (1.0-2.2); ALKALINE PHOSPHATASE 114 IU/L (42-121); ALT ALANINE AMINOTRANSFERASE 35 IU/L (10-60); AST ASPARTATE AMINOTRANSFERASE 29 IU/L (10-42); BILIRUBIN,TOTAL 0.4 mg/dL (0.2-1.0); BUN - BLOOD UREA NITROGEN 11 mg/dL (6-20); CALCIUM 9.6 mg/dL (8.5-10.3); CARBON DIOXIDE - CO2 26 mmol/L (21-32); CHLORIDE 96 mmol/L (101-111); CREATININE 0.8 mg/dL (0.6-1.3); ETOH - ETHANOL < 10.0 mg/dL; GFR - MDRD 69 (>89); GLUCOSE 162 mg/dL (74-104); LIPASE 29 U/L (11-82); POTASSIUM 3.6 mmol/L (3.5-4.5); SALICYLATE < 1.5 mg/dL; SODIUM 129 mmol/L (135-145); TOTAL PROTEIN 7.1 g/dL (6.4-8.9)
[2023-02-17 12:17] LABS: THYROID STIMULATING HORMONE 1.76 uIU/mL (0.34-5.60)
[2023-02-17] MEDS ORDERED: LACTATED RINGERS 1,000 ML IV STA (12:36)
--- NOTE | 2023-02-17 14:56 | ED Physician Documentation ---
PD HPI MHE - Stated complaint Stated Complaint: SORE THROAT - Chief complaint Chief Complaint: MHE - History obtained from History obtained from: Patient, Family () - Additional information Additional information: She's along history of psychiatric illness with tardive dyskinesia. Also chronic shoulder pain. Recently because of these issues, she has developed suicidal ideation with thoughts of overdosing on Ambien. She was on ingrezza for her TD. That was stopped as it was not helpful, now on Amantadine. 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 - Present Medications Home Medications: Ambulatory Orders Medication Instructions Recorded Confirmed ARIPiprazole [Abilify] 5 mg PO DAILY 08/31/20 08/31/20 Atorvastatin Calcium 40 mg PO DAILY 08/31/20 08/31/20 Cholecalciferol (Vitamin D3) 5,000 unit PO DAILY 08/31/20 08/31/20 [Vitamin D3] Clopidogrel [Plavix] 75 mg PO DAILY 08/31/20 08/31/20 Coffee/Theanine/Superoxide Dis 1 cap PO DAILY 08/31/20 08/31/20 [Neuriva De-Stress Capsule] DULoxetine [Cymbalta] 30 mg PO DAILY 08/31/20 08/31/20 Floradix 1 each PO DAILY 08/31/20 Linaclotide [Linzess] 230 mcg PO DAILYWM 08/31/20 08/31/20 Mecobalamin [B-12] 5,000 mcg PO DAILY 08/31/20 08/31/20 Mirabegron [Myrbetriq] 50 mg PO DAILY 08/31/20 08/31/20 Multivit-Min/Iron/Folic/Lutein 1 tab PO DAILY 08/31/20 08/31/20 [Multivitamin Women 50 Plus Tab] Pantoprazole [Protonix] 40 mg PO DAILY 08/31/20 08/31/20 amLODIPine [Norvasc] 5 mg PO DAILY 08/31/20 08/31/20 hydroCHLOROthiazide [Hydrodiuril] 25 mg PO DAILY 08/31/20 08/31/20 - Allergies Allergies/Adverse Reactions: Allergies Allergy/AdvReac Type Severity Reaction Status Date / Time latex Allergy Rash Verified 02/17/23 11:26 sulfamethoxazole AdvReac Rash Verified 02/17/23 11:26 [From ] trimethoprim [From ] AdvReac Rash Verified 02/17/23 11:26 tape Allergy Rash Uncoded 02/17/23 11:26 - Social History Does the pt smoke?: No Smoking Status: Never smoker Does the pt drink ETOH?: No Does the pt have substance abuse?: No - Immunizations Immunizations are current?: Yes - POLST Patient has POLST: No PD ED PE NORMAL - Vitals Vital signs reviewed: Yes - General General: Alert and oriented X 3, No acute distress - HEENT HEENT: PERRL, EOMI - Respiratory Respiratory: No respiratory distress - Abdomen Abdomen: Non tender - Neuro Neuro: Alert and oriented X 3, Normal speech - Psych Psych: Other (tearful, cooperative, well kempt, good eye contact) Results - Vitals Vitals: Vital Signs - 24 hr 02/17/23 02/17/23 11:19 15:57 Temperature 36.8 C Heart Rate 64 75 Respiratory 16 13 Rate Blood Pressure 133/53 H 160/77 H O2 Saturation 97 97 Oxygen O2 Source Room air - Labs Labs: Laboratory Tests 02/17/23 02/17/23 02/17/23 11:44 11:44 11:44 WBC 7.9 RBC 4.59 Hgb 12.2 Hct 37.8 MCV 82.4 MCH 26.6 L MCHC 32.3 RDW 13.5 Plt Count 222 MPV 11.1 H Neut # (Auto) 5.2 Lymph # (Auto) 1.5 [place] # (Auto) 1.0 Eos # (Auto) 0.2 Baso # (Auto) 0.0 Absolute Nucleated RBC 0.00 Nucleated RBC % 0.0 Sodium 129 L Potassium 3.6 Chloride 96 L Carbon Dioxide 26 Anion Gap 7.0 BUN 11 Creatinine 0.8 Estimated GFR (MDRD) 69 L Glucose 162 H Calcium 9.6 Magnesium 1.7 Total Bilirubin 0.4 AST 29 ALT 35 Alkaline Phosphatase 114 Total Protein 7.1 Albumin 4.1 Globulin 3.0 Albumin/Globulin Ratio 1.4 Lipase 29 Vitamin B12 TSH 1.76 Urine Color Urine Clarity Urine pH Ur Specific [place] Urine Protein Urine Glucose (UA) Urine Ketones Urine Occult Blood Urine Nitrite Urine Bilirubin Urine Urobilinogen Ur Leukocyte Esterase Ur Microscopic Review Urine Culture Comments Nasal Adenovirus (PCR) Nasal B. parapertussis DNA (PCR) Nasal Coronavir 229E PCR Nasal Coronavir HKU1 PCR Nasal Coronavir NL63 PCR Nasal Coronavir OC43 PCR Nasal Enterovir/Rhinovir PCR Nasal Influenza B PCR Nasal Influenza A PCR Nasal Parainfluen 1 PCR Nasal Parainfluen 2 PCR Nasal Parainfluen 3 PCR Nasal Parainfluen 4 PCR Nasal RSV (PCR) Nasal B.pertussis DNA PCR Nasal C.pneumoniae (PCR) Heath Human Metapneumo PCR Nasal M.pneumoniae (PCR) Nasal SARS-CoV-2 (PCR) Salicylates < 1.5 Urine Opiates Screen Ur Buprenorphine Scrn Ur Oxycodone Screen Urine Methadone Screen Acetaminophen 0.7 Ur Barbiturates Screen Ur Tricyclics Screen Ur Phencyclidine Scrn Ur Amphetamine Screen U Methamphetamines Scrn U Benzodiazepines Scrn Urine Cocaine Screen U Cannabinoids Screen Ur Drug Screen Comment Ethyl Alcohol < 10.0 02/17/23 02/17/23 02/17/23 11:44 14:58 16:39 WBC RBC Hgb Hct MCV MCH MCHC RDW Plt Count MPV Neut # (Auto) Lymph # (Auto) [place] # (Auto) Eos # (Auto) Baso # (Auto) Absolute Nucleated RBC Nucleated RBC % Sodium Potassium Chloride Carbon Dioxide Anion Gap BUN Creatinine Estimated GFR (MDRD) Glucose Calcium Magnesium Total Bilirubin AST ALT Alkaline Phosphatase Total Protein Albumin Globulin Albumin/Globulin Ratio Lipase Vitamin B12 1497 H TSH Urine Color YELLOW Urine Clarity CLEAR Urine pH 6.5 Ur Specific [place] 1.010 Urine Protein NEGATIVE Urine Glucose (UA) NEGATIVE Urine Ketones NEGATIVE Urine Occult Blood NEGATIVE Urine Nitrite NEGATIVE Urine Bilirubin NEGATIVE Urine Urobilinogen 0.2 (NORMAL) Ur Leukocyte Esterase NEGATIVE Ur Microscopic Review NOT INDICATED Urine Culture Comments NOT INDICATED Nasal Adenovirus (PCR) NOT DETECTED Nasal B. parapertussis DNA (PCR) NOT DETECTED Nasal Coronavir 229E PCR NOT DETECTED Nasal Coronavir HKU1 PCR NOT DETECTED Nasal Coronavir NL63 PCR NOT DETECTED Nasal Coronavir OC43 PCR NOT DETECTED Nasal Enterovir/Rhinovir PCR NOT DETECTED Nasal Influenza B PCR NOT DETECTED Nasal Influenza A PCR NOT DETECTED Nasal Parainfluen 1 PCR NOT DETECTED Nasal Parainfluen 2 PCR NOT DETECTED Nasal Parainfluen 3 PCR NOT DETECTED Nasal Parainfluen 4 PCR NOT DETECTED Nasal RSV (PCR) NOT DETECTED Nasal B.pertussis DNA PCR NOT DETECTED Nasal C.pneumoniae (PCR) NOT DETECTED Heath Human Metapneumo PCR NOT DETECTED Nasal M.pneumoniae (PCR) NOT DETECTED Nasal SARS-CoV-2 (PCR) NOT DETECTED Salicylates Urine Opiates Screen NEGATIVE Ur Buprenorphine Scrn NEGATIVE Ur Oxycodone Screen NEGATIVE Urine Methadone Screen NEGATIVE Acetaminophen Ur Barbiturates Screen NEGATIVE Ur Tricyclics Screen NEGATIVE Ur Phencyclidine Scrn NEGATIVE Ur Amphetamine Screen NEGATIVE U Methamphetamines Scrn NEGATIVE U Benzodiazepines Scrn NEGATIVE Urine Cocaine Screen NEGATIVE U Cannabinoids Screen NEGATIVE Ur Drug Screen Comment CUTOFF CONC BELOW: Ethyl Alcohol PD Medical Decision Making - ED course Complexity details: reviewed results (CBC unremarkable. Chemistry panel unremarkable, urinalysis, COVID test, toxicology screens all negative/normal.) ED course: 77-year-old woman with acute SI related to worsening [place] dyskinesia and other issues. Seen by telepsychiatric aws consultant who recommends inpatient treatment and increasing duloxetine and decreasing Abilify. Medication changes were made and they are looking for placement. Patient is currently voluntary and agreeable. Care to overnight ED physician pending psychiatric placement. She is voluntary at this juncture. Departure - Departure Clinical Impression: Depressive disorder Condition: Stable Forms: PCP List
--- NOTE | 2023-02-17 16:08 | TELEPSYCH PHYS NOTE ---
[facility] Telepsych Consult Consult Date: 02/17/23 Name of Referring Provider:: Dr. العلي Reason for Consult: Suicidal Ideation - Suicide Risk Sreening (ASQ Tool) In the past few weeks, have you wished you were ?: Yes In the past few weeks, have you felt that you or your family would be better off if you were ?: Yes In the past week, have you been having thoughts about killing yourself?: Yes Have you ever tried to kill yourself?: Yes - Assessment Language: Haitian Personal Companion Required: No Cultural, Yarsani or Spiritual Preferences: Bimal Notes: Tardive Dyskinesia Chief Complaint: "don't want to live" History of Present Illness: Pt is a 77 yoF w/ hx of tardive dyskinesia, MDD who presents with suicidal ideation. "Well I just feel like I have so many problems and the dyskinesia with my tongue really hurts my mouth and I can't eat, talk and I am just sick of it and feel like God played a trick on us. We worked hard at being a kind good person and what's the use. I don't want to be a baby. Father was an alcoholic and was very mean. My mother saved me. I lost my 2 little kids, they were killed in a car accident. After that, I've been on antidepressants, and I don't really want to live anymore. I am really tired. I finally told my I wanted to . My took the sleeping pills off my bedside table. I am glad he did, because that's what I planned to do. I just lost my second sister." Suicide Ideation - Homicide Ideation - Self Harm: Endorses SI w/ plan to overdose, denies HI, denies self-harm Psychiatric History - Treatment History: Inpatient psychiatric hospitalization: endorses, several years ago Past diagnosis: a psychotic break? depression Community Resources Accessed: doesn't have a therapist or psychiatrist Family Psych History/ History of suicide: dad- alcohol use disorder Nutritional Status: No nutritional concerns - Medication & Allergies Home Medications: Ambulatory Orders Medication Instructions Recorded Confirmed ARIPiprazole [Abilify] 5 mg PO DAILY 08/31/20 08/31/20 Atorvastatin Calcium 40 mg PO DAILY 08/31/20 08/31/20 Cholecalciferol (Vitamin D3) 5,000 unit PO DAILY 08/31/20 08/31/20 [Vitamin D3] Clopidogrel [Plavix] 75 mg PO DAILY 08/31/20 08/31/20 Coffee/Theanine/Superoxide Dis 1 cap PO DAILY 08/31/20 08/31/20 [Neuriva De-Stress Capsule] DULoxetine [Cymbalta] 30 mg PO DAILY 08/31/20 08/31/20 Floradix 1 each PO DAILY 08/31/20 Linaclotide [Linzess] 230 mcg PO DAILYWM 08/31/20 08/31/20 Mecobalamin [B-12] 5,000 mcg PO DAILY 08/31/20 08/31/20 Mirabegron [Myrbetriq] 50 mg PO DAILY 08/31/20 08/31/20 Multivit-Min/Iron/Folic/Lutein 1 tab PO DAILY 08/31/20 08/31/20 [Multivitamin Women 50 Plus Tab] Pantoprazole [Protonix] 40 mg PO DAILY 08/31/20 08/31/20 amLODIPine [Norvasc] 5 mg PO DAILY 08/31/20 08/31/20 hydroCHLOROthiazide [Hydrodiuril] 25 mg PO DAILY 08/31/20 08/31/20 Allergies/Adverse Reactions: Allergies Allergy/AdvReac Type Severity Reaction Status Date / Time latex Allergy Rash Verified 02/17/23 11:26 sulfamethoxazole AdvReac Rash Verified 02/17/23 11:26 [From ] trimethoprim [From ] AdvReac Rash Verified 02/17/23 11:26 tape Allergy Rash Uncoded 02/17/23 11:26 - Drug & Alcohol History Does patient have Drug/ETOH history or addictive behavior?: No Use: Uses substance without health or social issues: NONE Abuse: Recurrent use of substance despite neg consequences: NONE Dependence: Experiences withdrawal or developed tolerances: NONE - Trauma Does the patient have a history of trauma, abuse, neglect or explotation?: Yes - Personal Information Does the patient have a history or present tendencies for violence?: None Services History: Denies Does patient have any Legal Charges or Investigations?: No Environment & Living Situation - Social, Peer-Group (Note): At home Marital Status - Family Circumstances: lives with , has 2 living children and 2 Stressors - Financial Concerns: Misses her children who . Older sister recently . 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 She has sores. She has been having suicidal thoughts. They have been 61 years. He would feel safe with her returning home. Denies firearms at home. 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 Childhood History: hx of significant trauma - Mental Status Exam Appearance and Attire: hospital clothes, casually groomed Attitude and Behavior: cooperative, tardive dyskinesia, no PMR Speech: normal rate, amount Affect and Mood: "depressed" dysthymic Association and Thought Process: intact association, linear and organized thought process Thought Content: endorses SI w/ intent and plan to overdose, denies HI Perception: denies AH, sometimes sees things from the corner of her eye Sensorium, memory and orientation: alert and oriented to person, place, memory grossly intact Intellectual - Cognitive functioning: fair Insight and Judgement: fair insight, fair judgement Emotional and Behavioral Functioning: poor Ability to Self-Care: poor - Personal Goals Short-term Goals: to get mentally better - Risk/Protective Factors Risk Factors: Trigger events leading to humiliation, shame and/or despair, Sexual or physical abuse Protective Factors / Internal: Yarsani beliefs Protective Factors / External: Responsibility to children - Plan Impression/Risk Assessment: Pt is a 77 yoF w/ hx of tardive dyskinesia, MDD who presents with suicidal ideation. Pt has had a hx of significant trauma in her life. She endorses SI w/ plan to overdose on her medications. She feels hopeless, cannot identify reasons to live, and wants to be . Given all of this, pt is a high acute safety risk and requires inpatient psychiatric hospitalization for safety, medication management, and discharge planning. Treatment - Therapy Recommendations: Inpatient psychiatric hospitalization, voluntary - suicide precautions Pharmacological Recommendations: Decrease Abilify to 2.5mg daily and Increase duloxetine to 40mg daily. Discussed risks, benefits, and side effects. Pt consented. - Time Spent & Provider Location Telepsych consultation conducted via videoconferencing: Yes List names and roles of persons who participated in consult: Wanda Arambula MD Telepsych Provider Location: [place] Time Spent (Minutes):
[2023-02-17 16:16] LABS: B. PARAPERTUSSIS- RESP PCR PAN NOT DETECTED; B. PERTUSSIS- RESP PCR PANEL NOT DETECTED; C. PNEUMONIAE- RESP PCR PANEL NOT DETECTED; CORONAVIRUS 229E-RESP PCR NOT DETECTED; CORONAVIRUS HKU1-RESP PCR NOT DETECTED; CORONAVIRUS NL63-RESP PCR NOT DETECTED; CORONAVIRUS OC43-RESP PCR NOT DETECTED; HUMAN METAPNEUMOVIRUS NOT DETECTED; INFLUENZA A- RESP PCR PANEL NOT DETECTED; INFLUENZA B - RESP PCR PANEL NOT DETECTED; M. PNEUMONIAE- RESP PCR PANEL NOT DETECTED; PARAINFLUENZA VIRUS 1 NOT DETECTED; PARAINFLUENZA VIRUS 2 NOT DETECTED; PARAINFLUENZA VIRUS 3 NOT DETECTED; PARAINFLUENZA VIRUS 4 NOT DETECTED; RHINOVIRUS/ENTEROVIRUS NOT DETECTED; RSV- RESP PCR PANEL NOT DETECTED; SARS-CoV-2 -RESP PCR PANEL NOT DETECTED
[2023-02-17 16:49] LABS: BILIRUBIN,URINE NEGATIVE (NEGATIVE); GLUCOSE, URINE (UA) NEGATIVE (NEGATIVE); KETONES,URINE (UA) NEGATIVE (NEGATIVE); LEUKOCYTE ESTERASE, URINE NEGATIVE (NEGATIVE); NITRITE,URINE NEGATIVE (NEGATIVE); OCCULT BLOOD,URINE NEGATIVE (NEGATIVE); PH,URINE 6.5 PH (5.0-7.5); PROTEIN,URINE NEGATIVE (NEGATIVE); UROBILINOGEN,URINE 0.2 (NORMAL) E.U./dL (NORMAL)
[2023-02-17 16:51] LABS: CLARITY,URINE CLEAR (CLEAR)
[2023-02-17 17:00] LABS: AMPHETAMINE SCREEN,URINE NEGATIVE (NEGATIVE); BENZODIAZEPINES SCREEN, URINE NEGATIVE (NEGATIVE); COCAINE SCREEN URINE NEGATIVE (NEGATIVE); METHADONE SCREEN, URINE NEGATIVE (NEGATIVE); METHAMPHETAMINES SCREEN, URINE NEGATIVE (NEGATIVE); OPIATE SCREEN, URINE NEGATIVE (NEGATIVE); THC CANNABINOID SCREEN, URINE NEGATIVE (NEGATIVE); TRICYCLIC ANTIDEPRESSANT,URINE NEGATIVE (NEGATIVE)
[2023-02-17 17:01] LABS: BARBITURATE SCREEN,UR NEGATIVE (NEGATIVE); BUPRENORPHINE SCREEN, URINE NEGATIVE (NEGATIVE); OXYCODONE SCREEN, URINE NEGATIVE (NEGATIVE)
[2023-02-17] MEDS ORDERED: DULoxetine 20 MG CAPSULE PO STA (17:45)
[2023-02-17] MEDS ORDERED: ARIPiprazole 5 MG TABLET PO STA (17:45)
[2023-02-17] MEDS ORDERED: ZOLPIDEM 5 MG TABLET PO PRN ×2 (17:46→21:24)
[2023-02-17] MEDS: ACETAMINOPHEN 500 MG TABLET PO PRN (21:44)
[2023-02-18] MEDS: ACETAMINOPHEN 500 MG TABLET PO PRN ×2 (01:03→21:09)
[2023-02-18] MEDS ORDERED: diphenhydrAMINE 25 MG CAPSULE PO STA (04:32)
[2023-02-18 05:22] LABS: BASOPHILS % (AUTO) 0.3 %; EOSINOPHILS # (AUTO) 0.2 10^3/uL (0.0-0.7); EOSINOPHILS % (AUTO) 2.3 %; HCT - HEMATOCRIT 35.2 % (37.0-47.0); HGB - HEMOGLOBIN 11.5 g/dL (12.0-16.0); LYMPHOCYTES # (AUTO) 1.8 10^3/uL (1.5-3.5); LYMPHOCYTES % (AUTO) 20.3 %; MEAN CORPUSCULAR HEMOGLOBIN 26.6 pg (27.0-31.0); MEAN CORPUSCULAR HGB CONC 32.7 g/dL (32.0-36.0); MEAN CORPUSCULAR VOLUME 81.5 fL (81.0-99.0); MEAN PLATELET VOLUME 10.9 fL (7.9-10.8); MONOCYTES % (AUTO) 11.7 %; NEUTROPHILS # (AUTO) 5.8 10^3/uL (1.5-6.6); NEUTROPHILS % (AUTO) 65.1 %; PLT - PLATELET COUNT 198 10^3/uL (130-450); RED BLOOD COUNT 4.32 10^6/uL (4.20-5.40); RED CELL DISTRIBUTION WIDTH 13.2 % (12.0-15.0); WHITE BLOOD COUNT 8.9 x10^3/uL (4.8-10.8)
[2023-02-18 05:57] LABS: CALCIUM 9.5 mg/dL (8.5-10.3); CREATININE 0.7 mg/dL (0.6-1.3); POTASSIUM 3.3 mmol/L (3.5-4.5)
[2023-02-18] MEDS: ARIPiprazole 5 MG TABLET PO SCH (09:50)
[2023-02-18] MEDS: CLOPIDOGREL 75 MG TABLET PO SCH (09:50)
[2023-02-18] MEDS: hydroCHLOROthiazide 25 MG TABLET PO SCH (09:51)
[2023-02-18] MEDS: PANTOPRAZOLE 40 MG TABLET PO SCH (09:51)
[2023-02-18] MEDS: amLODIPine 5 MG TABLET PO SCH (09:51)
[2023-02-18] MEDS: DULoxetine 20 MG CAPSULE PO SCH (09:51)
--- NOTE | 2023-02-18 17:58 | ED Physician Documentation ---
ED Addendum - Addendum Addendum: 02/18/23 18:06 77-year-old Chas Youngblood is presented to the emergency department with depression and suicidal ideation and telepsych has been involved in her care recommending inpatient psychiatric hospitalization. She has been boarded in the emergency department now overnight and a bed has not become available.She reports that she had a difficult time sleeping last night despite taking 10 mg of Ambien. I offered to add trazodone for sleep. She recalls that she may have taken this previously but was uncertain. I asked her to take 2 take the 50 mg dose this evening and if she is unable to sleep to ask for the Ambien. 02/18/23 18:07
[2023-02-18] MEDS ORDERED: traZODone 50 MG TABLET PO STA ×2 (18:03→18:09)
[2023-02-18] MEDS ORDERED: traZODone 50 MG TABLET PO SCH (21:00)
[2023-02-19] MEDS: PANTOPRAZOLE 40 MG TABLET PO SCH (06:58)
--- NOTE | 2023-02-19 08:18 | ED Physician Documentation ---
ED Addendum - Addendum Addendum: 02/19/23 08:18 Patient sleeping comfortably not aroused on rounds this morning. Still waiting for inpatient bed. Reportedly there was a facility looking at her this morning who requested repeat urinalysis and repeat TSH. Repeat TSH done and not significantly changed over the last 2 days which would be expected. Urinalysis pending. 02/19/23 12:04 She is awake at this time and has no complaints other than she was upset because she got trazodone last night which she says did not work for her and she would prefer to get Ambien. For reasons unclear although she asked for last night, did not get Ambien. As such I canceled her as needed trazodone order as she says it did not work.
[2023-02-19] MEDS: ARIPiprazole 5 MG TABLET PO SCH (08:49)
[2023-02-19] MEDS: DULoxetine 20 MG CAPSULE PO SCH (08:49)
[2023-02-19] MEDS: CLOPIDOGREL 75 MG TABLET PO SCH (08:50)
[2023-02-19] MEDS: hydroCHLOROthiazide 25 MG TABLET PO SCH (08:50)
[2023-02-19] MEDS: amLODIPine 5 MG TABLET PO SCH (08:51)
[2023-02-19 08:59] LABS: BILIRUBIN,URINE NEGATIVE (NEGATIVE); GLUCOSE, URINE (UA) NEGATIVE (NEGATIVE); KETONES,URINE (UA) NEGATIVE (NEGATIVE); LEUKOCYTE ESTERASE, URINE NEGATIVE (NEGATIVE); NITRITE,URINE NEGATIVE (NEGATIVE); OCCULT BLOOD,URINE NEGATIVE (NEGATIVE); PROTEIN,URINE NEGATIVE (NEGATIVE); UROBILINOGEN,URINE 0.2 (NORMAL) E.U./dL (NORMAL)
[2023-02-19 09:00] LABS: CLARITY,URINE CLEAR (CLEAR)
[2023-02-19 16:05] VITALS: BP 124/56; O2SAT 96
[2023-02-19] MEDS ORDERED: LIDOCAINE VISCOUS 2% 15 ML ORAL SYRINGE MM STA (17:18)
== END 2023-02-19 18:36 ==
LOC: ED 11:14
DX: R45.851 Suicidal ideations (principal); F32.A Depression, unspecified; G24.01 Drug induced subacute dyskinesia; Z75.1 Person awaiting admission to adequate facility elsewhere
CPT/HCPCS: 36415; 80048; 80053; 80306; 80307; 81003; 82607; 83690; 83735; 84443; 85025; 87633; 99283; 99285; A9270; G0425; G0480; J7120; Q3014; 80320; 80329; 81001; 87086

== ENCOUNTER 2023-06-01 17:06 | Emergency (ER) | payer MEDICARE, OTHER ==
--- NOTE | 2023-06-01 18:05 | ED Physician Documentation ---
History of Present Illness - Stated complaint Stated Complaint: DIZZY, DOUBLE VISION - Chief complaint Chief Complaint: General - History obtained from History obtained from: Patient - Additonal information Additional information: 77-year-old woman with history of psychiatric illness and tachycardia and dyskinesia, bad shoulders. She went to the clinic today for a productive cough of 3 weeks duration with low-grade fevers. She did bring up waters sputum and she is short of breath. She has had some posttussive emesis with it. They elucidated on history that she is also been having a weeks worth of intermittent diplopia, binocular diplopia with vertigo but different vertigo than she has been having in the past and sent her here for further evaluation and treatment. 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 - Present Medications Home Medications: Ambulatory Orders Medication Instructions Recorded Confirmed ARIPiprazole [Abilify] 5 mg PO DAILY 08/31/20 02/18/23 Atorvastatin Calcium 40 mg PO DAILY 08/31/20 02/18/23 Cholecalciferol (Vitamin D3) 5,000 unit PO DAILY 08/31/20 02/18/23 [Vitamin D3] Clopidogrel [Plavix] 75 mg PO DAILY 08/31/20 02/18/23 Coffee/Theanine/Superoxide Dis 1 cap PO DAILY 08/31/20 02/18/23 [Neuriva De-Stress Capsule] DULoxetine [Cymbalta] 30 mg PO DAILY 08/31/20 02/18/23 Floradix 1 each PO DAILY 08/31/20 02/18/23 Linaclotide [Linzess] 230 mcg PO DAILYWM 08/31/20 02/18/23 Mecobalamin [B-12] 5,000 mcg PO DAILY 08/31/20 02/18/23 Mirabegron [Myrbetriq] 50 mg PO DAILY 08/31/20 02/18/23 Multivit-Min/Iron/Folic/Lutein 1 tab PO DAILY 08/31/20 02/18/23 [Multivitamin Women 50 Plus Tab] Pantoprazole [Protonix] 40 mg PO DAILY 08/31/20 02/18/23 amLODIPine [Norvasc] 5 mg PO DAILY 08/31/20 02/18/23 hydroCHLOROthiazide [Hydrodiuril] 25 mg PO DAILY 08/31/20 02/18/23 Amoxicillin 2 tab PO TID #30 cap 06/01/23 - Allergies Allergies/Adverse Reactions: Allergies Allergy/AdvReac Type Severity Reaction Status Date / Time latex Allergy Rash Verified 06/01/23 18:22 sulfamethoxazole AdvReac Rash Verified 06/01/23 18:22 [From ] trimethoprim [From ] AdvReac Rash Verified 06/01/23 18:22 tape Allergy Rash Uncoded 06/01/23 18:22 - Social History Does the pt smoke?: No Smoking Status: Never smoker Does the pt drink ETOH?: No Does the pt have substance abuse?: No - Immunizations Immunizations are current?: Yes - POLST Patient has POLST: No PD ED PE NORMAL - Vitals Vital signs reviewed: Yes - General General: Alert and oriented X 3, Other (Frequent coughing) - HEENT HEENT: PERRL, EOMI (I am unable to recreate any diplopia or extraocular movement deficit on exam. When looking in any direction she sees a single finger as a single finger.) - Neck Neck: Supple, no meningeal sign, No bony TTP - Cardiac Cardiac: RRR, No murmur - Respiratory Respiratory: No respiratory distress, Clear bilaterally - Abdomen Abdomen: Non tender - Neuro Neuro: Alert and oriented X 3, checkman 2-12 intact Eye Opening: Spontaneous Motor: Obeys Commands Verbal: Oriented GCS Score: 15 Results - Vitals Vitals: Vital Signs - 24 hr 06/01/23 06/01/23 17:09 20:00 Heart Rate 60 70 Respiratory 16 12 Rate Blood Pressure 141/57 H 99/68 O2 Saturation 99 98 Oxygen O2 Source Room air - Rads (name of study) 2 view chest x-ray and MRI of the head were unremarkable Relevant Findings:: Final report received, EMP independent interpretation of test PD Medical Decision Making - ED course ED course: 77-year-old woman comes in with chief complaint of cough, going on for 3 weeks. Chest x-ray was clear but given the time course and symptomatology reasonable to trial some antibiotics. She has secondary complaint of diplopia which was what she was sent from the clinic for. She has had this before and it was related to dry eye per her leather polisher. There is no cranial neuropathy on exam and I am not able to recreate the diplopia. That said given her age reasonable to do an MRI to rule out a central lesion and this is done and negative. Departure - Departure Disposition: 01 Home, Self Care Clinical Impression: Diplopia, Bronchitis Condition: Stable Record reviewed to determine appropriate education?: Yes Instructions: ED Upper Resp Infec Abx Tx Prescriptions: Amoxicillin 2 tab PO TID #30 cap Comments: The MRI of your head was normal except for some common and usual age-related changes, so the cause of your intermittent double vision would not be from a brain problem. Your previous leather polisher thought it was from dry eye so presume that it is that again. Call your doctor to arrange a follow-up appointment, make the next available appointment. In the interim, return anytime if worse or if new symptoms develop. Forms: PCP List Discharge Date/Time: 06/01/23 19:45
--- NOTE | 2023-06-01 18:11 | XRAY Report ---
PROCEDURE: Chest 2V INDICATIONS: SOA TECHNIQUE: 2 views of the chest were acquired. COMPARISON: 02/18/2022. FINDINGS: Surgical changes and devices: Right shoulder arthroplasty. Lungs and pleura: No pleural effusions or pneumothorax. Lungs are clear. Mediastinum: Mediastinal contours appear normal. Heart size is normal. Bones and chest wall: No suspicious bony lesions. Overlying soft tissues appear unremarkable. IMPRESSION: No acute cardiopulmonary process. Reviewed by: Franck Holcomb MD on 06/01/2023 6:09 PM PDT Approved by: Franck Holcomb MD on 06/01/2023 6:09 PM PDT Station ID: [id number]
[2023-06-01] MEDS: guaiFENesin/CODEINE 5 ML UDC PO STA (18:18)
[2023-06-01] MEDS ORDERED: LORazepam 2 MG/ML VIAL ONE (18:33)
[2023-06-01] MEDS: LORazepam 2 MG/ML VIAL IVP STA (18:34)
--- NOTE | 2023-06-01 19:18 | MRI Report ---
PROCEDURE: Brain WO INDICATIONS: vertigo TECHNIQUE: Noncontrast axial T1 spin echo, axial T2 fast spin echo, sagittal and axial FLAIR, coronal T2 fast sp in echo, axial gradient echo, axial diffusion and ADC through the brain. COMPARISON: None. FINDINGS: Image quality: Motion artifact is noted. CSF Spaces: Basal cisterns are patent. No extra-axial fluid collections. Ventricles are normal in size and shape. Brain: No intracranial masses or hemorrhage. Rivera/white matter interface is normal. Brainstem appe ars normal. Diffusion-weighted images demonstrate no acute ischemic insult. No chronic ischemic ins ults. Normal intravascular flow voids are present. Age-appropriate brain parenchymal volume loss an d chronic small vessel ischemic change can be seen. Prominent perivascular spaces are incidentally n oted. In this patient with this given history, scrutiny is given to the cerebellopontine angle cisterns and to the internal auditory canals. To the limits of this standard protocol study, no masses can be see n within these regions. Skull and face: Calvarium has normal marrow signal. Orbits appear normal. Incidental note is made of bilateral lens replacements. Sinuses: There is moderate mucosal thickening within the right maxillary sinus and there is mild muco chet thickening within the left maxillary sinus. Mild mucosal thickening can be seen throughout the et hmoid air cells. IMPRESSION: No imaging explanation is found for the patient's presenting symptoms. To the limits of this protocol study performed without IV contrast, no findings of masses can be seen within the cerebellopontine angle cisterns or within the internal auditory canals. No findings of acute or subacute infarction are seen. Age-appropriate brain parenchymal volume loss and chronic small vessel ischemic change can be seen. No prior territorial infarction can be seen. Additional findings: Bilateral lens replacements Paranasal sinus disease, worst within the right maxillary sinus Reviewed by: Chas Hinds MD on 06/01/2023 6:17 PM [facility] Approved by: Chas Hinds MD on 06/01/2023 6:17 PM [id number] Station ID: [id number]
[2023-06-01 20:15] VITALS: BP 99/68; O2SAT 98
[2023-06-01] MEDS: LORazepam 1 MG TABLET PO STA (20:29)
--- NOTE | 2023-06-02 07:57 | ED Physician Documentation ---
ED Addendum - Addendum Addendum: 06/02/23 07:55 Received a call from the [place] pharmacist and they have a amoxicillin allergy listed for the patient as well which causes a rash. Unknown information about the history of that. We only have listed a trimethoprim sulfa allergy as well as latex and tape. Given the inability to really asked the patient about that and the treatment was intended for bronchitis, I felt it easiest to just change the antibiotic to doxycycline 100 mg twice daily for a week. The pharmacist will do that.
== END 2023-06-01 19:45 | disposition home or self-care (01) ==
LOC: ED 17:06
DX: J40 Bronchitis, not specified as acute or chronic (principal); H53.2 Diplopia; Z88.0 Allergy status to penicillin
CPT/HCPCS: 70551; 71046; 99283; A9270; J2060; J8499

== ENCOUNTER 2023-09-28 04:01 | Outpatient (CLI) | payer MEDICARE, OTHER | END 2023-09-28 23:59 | disposition critical access hospital (66) | LOC: EMS 04:01 | DX: R10.31 Right lower quadrant pain (principal) | CPT/HCPCS: A0425; A0429 ==

== ENCOUNTER 2023-09-28 04:19 | Emergency (ER) | payer MEDICARE, OTHER | END 2023-09-28 07:10 | disposition home or self-care (01) | LOC: ED 04:19 | DX: G47.00 Insomnia, unspecified (principal); R45.1 Restlessness and agitation | CPT/HCPCS: 99282; 99283 ==

== ENCOUNTER 2023-09-30 08:33 | Emergency (ER) | payer MEDICARE, OTHER ==
--- NOTE | 2023-09-30 08:54 | ED Physician Documentation ---
PD HPI HEAD INJURY - Stated complaint Stated Complaint: GLF, HEAD/RT SIDE PX - Chief complaint Chief Complaint: Trauma Hd/Nk - History obtained from History obtained from: Patient - History of Present Illness Mechanism of head injury: Fell (she states stumbled getting from bed 2 nights ago; often fumbly after sleep med nba. struck face/head and right hip with fall. Still pains in thos placeds and some rto right ribs/chest. On Plavix. Concerned of persisting pain.) Where head injury occurred: Home Timing - onset: How many days ago (02/21) Pain level max: 5 Pain level now: 3 Location of injury: Right Quality of pain: Throbbing, Aching Associated symptoms: No: LOC, AMS, Nausea / vomiting Contributing factors: Anticoagulated (anitplatelet Plavix) Similar symptoms before: Has not had sx before Review of Systems Musculoskeletal: denies: Neck pain, Back pain Neurologic: reports: Headache, Head injury. 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 - Present Medications Home Medications: Ambulatory Orders Medication Instructions Recorded Confirmed Atorvastatin Calcium 40 mg PO DAILY 08/31/20 09/30/23 Cholecalciferol (Vitamin D3) 5,000 unit PO DAILY 08/31/20 09/30/23 [Vitamin D3] Clopidogrel [Plavix] 75 mg PO DAILY 08/31/20 09/30/23 Coffee/Theanine/Superoxide Dis 1 cap PO DAILY 08/31/20 09/30/23 [Neuriva De-Stress Capsule] DULoxetine [Cymbalta] 30 mg PO DAILY 08/31/20 09/30/23 Linaclotide [Linzess] 230 mcg PO DAILYWM 08/31/20 09/30/23 Mecobalamin [B-12] 5,000 mcg PO DAILY 08/31/20 09/30/23 Mirabegron [Myrbetriq] 50 mg PO DAILY 08/31/20 09/30/23 Multivit-Min/Iron/Folic/Lutein 1 tab PO DAILY 08/31/20 09/30/23 [Multivitamin Women 50 Plus Tab] amLODIPine [Norvasc] 5 mg PO DAILY 08/31/20 09/30/23 hydroCHLOROthiazide [Hydrodiuril] 25 mg PO DAILY 08/31/20 09/30/23 Lidocaine 4 % TP DAILY PRN #10 patch 09/30/23 Metoprolol Succinate [Toprol Xl] 1 tab PO DAILY 09/30/23 09/30/23 Oxycodone HCl/Acetaminophen 1 each PO Q6H PRN #20 tablet 09/30/23 [Percocet 5-325 mg Tablet] Tetrabenazine 1 tab PO BID 09/30/23 09/30/23 - Allergies Allergies/Adverse Reactions: Allergies Allergy/AdvReac Type Severity Reaction Status Date / Time latex Allergy Rash Verified 09/30/23 08:52 sulfamethoxazole AdvReac Rash Verified 09/30/23 08:52 [From ] trimethoprim [From ] AdvReac Rash Verified 09/30/23 08:52 tape Allergy Rash Uncoded 09/30/23 08:52 - Social History Does the pt smoke?: No Smoking Status: Never smoker Does the pt drink ETOH?: No Does the pt have substance abuse?: No - Immunizations Immunizations are current?: Yes - POLST Patient has POLST: No PD ED PE NORMAL - Vitals Vital signs reviewed: Yes - General General: Alert and oriented X 3, No acute distress, Well developed/nourished - HEENT HEENT: Other (mild tender right parietal area. Minimal swelling. ) - Neck Neck: Supple, no meningeal sign, No bony TTP, C-Spine cleared by NEXUS criteria - Respiratory Respiratory: No respiratory distress, Clear bilaterally, Other (mild tender right lateral lower ribs without crepitance nor clicking. ) - Abdomen Abdomen: Soft, Non tender - Back Back: No CVA TTP, No spinal TTP - Derm Derm: Normal color, Warm and dry - Extremities Extremities: Other (right lateral hip and toward SI area with some tenderness. Hip joint itself not pain with ROM nor with impaction/rotational passive movement. No bruising noted. ) Results - Vitals Vitals: Oxygen O2 Source Room air - Rads (name of study) head CT Relevant Findings:: Prelim report reviewed (no acute process), EMP independent interpretation of test chest/abd/pel CT trauma Relevant Findings:: Prelim report reviewed (no injuries noted. nofractures. ), EMP independent interpretation of test PD Medical Decision Making - ED course Complexity details: reviewed results (no ICH nor fractures/organ injuries. ), considered differential (fall with hed pain and pelvic/rib pains. Can image to ensure no more significant injuries. 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 The CT scan of your trunk including chest abdomen and pelvis did not show any organ or bony acute injuries. This is a good thing. Presume your areas of pain and hurting are related to bruising or contusion and I would anticipate improvement over the shorter-term, the next several days to week. Use some Tylenol 500 to 650 mg 4 times a day regularly for the next week. Use lidocaine patches over the more tender areas on the ribs etc. Add oxycodone every 4-6 hours if needed for worse pains. I wrote a short-term prescription for that. Recheck if not improving well over the next several days to week. I sent a prescription to your preferred pharmacy. I am prescribing a short course of narcotic pain medication for you. These are potentially dangerous and addictive medications that should be used carefully. These medications may constipate you. Take an [id number] stool softener such as docusate twice daily with plenty of water while taking these medications. If you go 24 hours without a bowel movement, take [id number] MiraLAX, per package instructions. Do not drink or drive while taking these medications. If you received narcotic or sedating medications while in the emergency department do not drive for 24 hours. Store this medication in a safe, secure place and out of reach of children. It is a violation of federal law to give or sell this medication to another person or to use in a manner other than prescribed. The ED will not refill narcotic prescriptions, including prescriptions lost or stolen. You can dispose of unwanted medications at the [facility]'s office or at several pharmacies such as [facility]. Forms: PCP List Discharge Date/Time: 09/30/23 11:21
--- NOTE | 2023-09-30 10:19 | CT Report ---
PROCEDURE: Abdomen/Pelvis WO INDICATIONS: fall 2 days ago, right ribs/flank/iliac pains TECHNIQUE: A CT scan of the abdomen and pelvis was performed without the use of intravenous contrast. Images we re recorded and evaluated at appropriate window settings. Reformats: coronal and sagittal. For radiat ion dose reduction, the following was used: automated exposure control, adjustment of mA and/or kV ac cording to patient size. COMPARISON: None. FINDINGS: Image quality: Diagnostic. Lower chest: Unremarkable. Liver: No contour-deforming mass. Gallbladder: Surgically absent Biliary tree: No intrahepatic or extrahepatic dilation, accounting for age. Spleen: No splenomegaly. Pancreas: Moderate atrophy without focal mass or ductal dilation. Adrenals: No adrenal nodule. Kidneys and ureters: Bilateral hydronephrosis, right greater than left. No focal mass. Stomach, bowel and peritoneum: Postsurgical changes of the stomach are shown. Bowel is of normal jr lalit without obstruction. Lymph nodes: No central or retroperitoneal adenopathy. Vessels: No infrarenal aortic aneurysm. Reproductive organs: Unremarkable. Bladder: Bladder wall thickness is normal, accounting for underdistention. No calcified bladder stone s. Pelvic lymph nodes: No adenopathy by size criteria. Bones: No aggressive osseous abnormality. Other: No significant ventral or inguinal hernia. IMPRESSION: No traumatic injury of the solid organs or hollow viscus of the abdomen and pelvis. Reviewed by: Billie Sandoval MD on 09/30/2023 9:18 AM MONIQUE Approved by: Billie Sandoval MD on 09/30/2023 9:18 AM MONIQUE Station ID: [id number]
--- NOTE | 2023-09-30 10:26 | CT Report ---
PROCEDURE: Chest WO INDICATIONS: fall 2 d ago; pain right ribs/flank/iliac/pelvic TECHNIQUE: A CT scan of the chest was performed. Intravenous contrast media was not administered. Images were re corded and evaluated at appropriate window settings. Reformats: axial MIP of the chest, coronal and s agittal. For radiation dose reduction, the following was used: automated exposure control, adjustment of mA and/or kV according to patient size. COMPARISON: None. FINDINGS: Image quality: Diagnostic. Chest wall and lower neck: No thyroid nodule which requires sonographic follow up. No axillary or sup raclavicular adenopathy by size. Lungs and pleura: No consolidation. No pleural effusions. No pneumothorax. No suspicious pulmonary n odules which require follow up. Scattered sub-6 mm pulmonary nodules are present. Mediastinum: Heart size is normal. No pericardial effusion. No large vessel abnormality with the exce ption of atherosclerosis of the aorta. No mediastinal adenopathy by size criteria. Bones: No aggressive osseous abnormality. No displaced rib fracture. Upper Abdomen: Unremarkable. IMPRESSION: No displaced rib fracture or underlying pulmonary injury. Reviewed by: Billie Sandoval MD on 09/30/2023 9:25 AM MONIQUE Approved by: Billie Sandoval MD on 09/30/2023 9:25 AM MONIQUE Station ID: [id number]
--- NOTE | 2023-09-30 10:29 | CT Report ---
PROCEDURE: Head WO INDICATIONS: fall 2 d ago; DIEHL; on plavix TECHNIQUE: Noncontrast 4.5 mm thick angled axial sections acquired from the foramen magnum to the vertex. For r adiation dose reduction, the following was used: automated exposure control, adjustment of mA and/or kV according to patient size. COMPARISON: Brain MRI dated 06/01/2023 FINDINGS: Image quality: Excellent. CSF spaces: Basal cisterns are patent. No extra-axial fluid collections. Ventricles are normal in size and shape. Brain: No midline shift. No intracranial masses or hemorrhage. Rivera-white matter interface is norm al. There is mild global atrophy with compensatory prominence of the CSF spaces, less than expected for age. Skull and face: Calvarium and visualized facial bones are intact, without suspicious lesions. Sinuses: Visualized sinuses and mastoids are clear. IMPRESSION: No acute intracranial pathology. Reviewed by: Billie Sandoval MD on 09/30/2023 9:28 AM MONIQUE Approved by: Billie Sandoval MD on 09/30/2023 9:28 AM [email or web address] Station ID: [id number]
[2023-09-30 11:22] VITALS: BP 134/84; O2SAT 100
== END 2023-09-30 11:21 | disposition home or self-care (01) ==
LOC: ED 08:33
DX: S20.211A Contusion of right front wall of thorax, initial encounter (principal); S30.0XXA Contusion of lower back and pelvis, initial encounter; W01.0XXA Fall on same level from slipping, tripping and stumbling without subsequent striking against object, initial encounter; Z79.02 Long term (current) use of antithrombotics/antiplatelets
CPT/HCPCS: 99284